=== PATIENT | male | born 1955 | race Caucasian/White ===

== ENCOUNTER 2017-01-24 19:24 | Observation (INO) | payer SELFPAY ==
[~2017-01-24] VITALS: Ht 177.8 cm; Wt 149.5 kg
[~2017-01-24 19:24] MED LIST: CEPH500C3 PO; COUM4TAB7 PO; OCUVTAB PO
[2017-01-24 19:29] VITALS: BP 180/106; PULSE 98; RESP 16; TEMP 99; O2SAT 97
[2017-01-24] MEDS ORDERED: XARE20TA PO (21:29)
[2017-01-24 21:44] VITALS: PULSE 82; RESP 16; O2SAT 97
[2017-01-24] MEDS ORDERED: SODIUM CHLORIDE 0.9% FLUSH 10 ML FLUSH IVF PRN (21:45)
--- NOTE | 2017-01-24 21:47 | PD ---
HPI Chief Complaint: Eye Problems/Injury Time Seen by Provider: 21:39 Travel History International Travel<30 days: No (5) Contact w/Intl Traveler<30days: No Traveled to known affect area: No History of Present Illness HPI Patient comes in complaining of visual changes occur approximately 3 hours ago in his left eye. Patient reports he is having blurred vision of his left eye while the grocery store. Patient states this lasted approximately 10 minutes. Patient reports associated chest tightness at that time and feeling somewhat diaphoretic. Patient denies any headache with this, dizziness, shortness of breath, any new numbness or tingling, nausea, vomiting, loss change in bowel or bladder, abdominal pain, or fevers. Patient reports he has a history of PEs and takes is Xarelto regularly last dose this morning. Patient denies anything making this better or worse other than time, which alleviated it. Patient states he also felt generalized weakness during this episode that has since resolved. PFSH Past Medical History Arthritis: Yes Asthma: Yes Autoimmune Disease: No Blood Disorders: No Anxiety: Yes Depression: Yes Heart Rhythm Problems: No Cancer: No Cardiac Catheterization: Yes Cardiovascular Problems: Yes (" LEAKY VALVE ") High Cholesterol: No Chest Pain: No Congestive Heart Failure: No COPD: No Cerebrovascular Accident: No Diabetes: No Diminished Hearing: Yes (STUFFY EARS) Deep Vein Thrombosis: Yes (hx blood clots/pe) Endocrine: No Gastrointestinal Disorders: Yes GERD: No Genitourinary: No Headaches: Yes Hepatitis: No Hiatal Hernia: No Hypertension: No Immune Disorder: No Implanted Vascular Access Dvce: No Kidney Stones: No Musculoskeletal: Yes (FREQUENT FEET CRAMPING) Neurologic: Yes ("FACIAL NEUROPATHY") Psychiatric: Yes Reproductive: No Respiratory: Yes Immunizations Current: No Migraines: No Myocardial Infarction: No Radiation Therapy: No Renal Failure: No Seizures: No Sickle Cell Disease: No Sleep Apnea: No Thyroid Disease: No Ulcer: No Past Surgical History Abdominal Surgery: Yes (HERNIA SURGERY ) AICD: No Appendectomy: No Arteriovenous Shunt: No Cardiac Surgery: No Cholecystectomy: No Ear Surgery: No Endocrine Surgery: No Eye Surgery: No Genitourinary Surgery: No Gynecologic Surgery: No Insulin Pump: No Joint Replacement: Yes (RIGHT KNEE SX X 2) Oral Surgery: Yes (ORIF RIGHT MANDIBLE) Thoracic Surgery: No Other Surgery: Yes Social History Alcohol Use: No Tobacco Use: No Substance Use: No Allergies-Medications (Allergen,Severity, Reaction): Coded Allergies: aspirin (Unverified Adverse Reaction, Severe, BLEED, 01/24/17) Sulfa (Sulfonamide Antibiotics) (Unverified Adverse Reaction, Intermediate , STS FEELS WEIRD, 01/24/17) Reported Meds & Prescriptions Reported Meds & Active Scripts Active Reported Xarelto (Rivaroxaban) 20 Mg Tab 20 Mg PO DAILY Review of Systems Except as stated in HPI: all other systems reviewed are Neg Physical Exam Narrative GENERAL: Well-developed, overly nourished, in no acute distress, and non-ill appearing. SKIN: Venous stasis dermatitis bilateral lower extremities patient reports is chronic. HEAD: Atraumatic. Normocephalic. EYES: Pupils equal and round. EOMI. No scleral icterus. No injection or drainage. ENT: No nasal bleeding or discharge. Mucous membranes pink and moist. NECK: Trachea midline. Supple. No nuclear rigidity. CARDIOVASCULAR: Regular rate and rhythm. No murmur appreciated. RESPIRATORY: No accessory muscle use. No respiratory distress. Clear to auscultation. Breath sounds equal bilaterally. MUSCULOSKELETAL: No obvious deformities. No clubbing. No cyanosis. 2+ edema bilateral lower extremities patient reports is chronic.. Full range of motion. NEUROLOGICAL: Awake and alert. No obvious cranial nerve deficits. Motor grossly within normal limits. Normal speech. PSYCHIATRIC: Appropriate mood and affect; insight and judgment normal. Data Data Last Documented VS Vital Signs Date Time Temp Pulse Resp B/P (MAP) Pulse Ox O2 Delivery O2 Flow Rate FiO2 01/24/17 21:44 82 16 97 Room Air 01/24/17 19:29 99.0 Orders Orders Electrocardiogram (01/24/17 ) Basic Metabolic Panel (Bmp) (01/24/17 21:40) Ckmb (Isoenzyme) Profile (01/24/17 21:40) Complete Blood Count With Diff (01/24/17 21:40) Magnesium (Mg) (01/24/17 21:40) Prothrombin Time / Inr (Pt) (01/24/17 21:40) Act Partial Throm Time (Ptt) (01/24/17 21:40) Troponin I (01/24/17 21:40) Chest, Single Ap (01/24/17 21:40) Ecg Monitoring (01/24/17 21:40) Bilateral Bp Monitoring (01/24/17 21:40) Iv Access Insert/Monitor (01/24/17 21:40) Oximetry (01/24/17 21:40) Oxygen Administration (01/24/17 21:40) Sodium Chloride 0.9% Flush (Ns Flush) (01/24/17 21:45) Ct Brain W/O Iv Contrast(Rout) (01/24/17 21:40) CKMB (01/24/17 21:55) CKMB% (01/24/17 21:55) Admit Order (Ed Use Only) (01/24/17 23:07) Labs Laboratory Tests Test 01/24/17 21:55 White Blood Count 6.6 TH/MM3 Red Blood Count 4.91 MIL/MM3 Hemoglobin 13.8 GM/DL Hematocrit 42.7 % Mean Corpuscular Volume 87.0 FL Mean Corpuscular Hemoglobin 28.1 PG Mean Corpuscular Hemoglobin Concent 32.3 % Red Cell Distribution Width 15.6 % Platelet Count 179 TH/MM3 Mean Platelet Volume 7.9 FL Neutrophils (%) (Auto) 76.2 % Lymphocytes (%) (Auto) 15.3 % Monocytes (%) (Auto) 7.8 % Eosinophils (%) (Auto) 0.4 % Basophils (%) (Auto) 0.3 % Neutrophils # (Auto) 5.0 TH/MM3 Lymphocytes # (Auto) 1.0 TH/MM3 Monocytes # (Auto) 0.5 TH/MM3 Eosinophils # (Auto) 0.0 TH/MM3 Basophils # (Auto) 0.0 TH/MM3 CBC Comment DIFF FINAL Differential Comment Prothrombin Time 14.0 SEC Prothromb Time International Ratio 1.3 RATIO Activated Partial Thromboplast Time 39.9 SEC Blood Urea Nitrogen 19 MG/DL Creatinine 0.86 MG/DL Random Glucose 93 MG/DL Calcium Level 9.0 MG/DL Magnesium Level 2.3 MG/DL Sodium Level 138 MEQ/L Potassium Level 3.8 MEQ/L Chloride Level 104 MEQ/L Carbon Dioxide Level 27.2 MEQ/L Anion Gap 7 MEQ/L Estimat Glomerular Filtration Rate 90 ML/MIN Total Creatine Kinase 285 U/L Creatine Kinase MB 3.3 NG/ML Troponin I LESS THAN 0.02 NG/ML MDM Medical Decision Making Medical Screen Exam Complete: Yes Emergency Medical Condition: Yes Interpretation(s) EKG reviewed by Dr. Kan shows sinus rhythm with ventricular rate of 88. No STEMI. Chest x-ray read by the radiologist shows: No evidence of acute cardiopulmonary disease. CT head read by the radiologist shows: Normal noncontrast CT head. Differential Diagnosis Acute coronary syndrome, pneumonia, TIA, CVA, electrolyte abnormality, angina, other Narrative Course Patient was seen and examined. Initial laboratory and radiological studies were ordered. IV was established. Patient was placed on cardiac monitoring. Discussed patient with Dr. Kan and plans of care and disposition. Will admit patient for chest pain evaluation and TIA workup. Discussed all findings and plan of care with patient was agreeable for admission. All questions were answered. Discussed patient with hospitalist who is agreeable to admit the patient. Patient remained stable throughout ED course Physician Communication Physician Communication [phone] Cornejo who is agreeable to admit the patient. Diagnosis Primary Impression: Chest pain Qualified Codes: R07.9 - Chest pain, unspecified Additional Impression: Visual blurriness Admitting Information Admitting Physician Requests: Observation Condition: Stable Aki Shah Jan 24, 2017 21:47
--- NOTE | 2017-01-24 22:13 | RADRPT ---
EXAM DATE/TIME: 01/24/2017 21:48 [facility] COMPARISON: No previous studies available for comparison. INDICATIONS : Short of breath. MEDICAL HISTORY : None. SURGICAL HISTORY : None. ENCOUNTER: Initial ACUITY: 1 day PAIN SCORE: 0/10 LOCATION: Bilateral chest FINDINGS: A single view of the chest demonstrates the lungs to be symmetrically aerated without evidence of mas s, infiltrate or effusion. The cardiomediastinal contours are unremarkable. Osseous structures are intact. CONCLUSION: No evidence of acute cardiopulmonary disease. Federico Ashford MD on January 24, 2017 at 22:12 Board Certified Radiologist. This report was verified electronically.
[2017-01-24 22:21] LABS: BASOPHIL % 0.3 % (0.0-2.0); EOSINOPHIL % 0.4 % (0.0-4.0); HEMATOCRIT 42.7 % (39.0-51.0); HEMO FLAGS DIFF FINAL; LYMPH % 15.3 % (9.0-44.0); MEAN CORPUSCULAR HEMOGLOBIN 28.1 PG (27.0-34.0); MEAN CORPUSCULAR HGB CONC 32.3 % (32.0-36.0); MONO % 7.8 % (0.0-8.0); NEUT % 76.2 % (16.0-70.0); PLATELET COUNT 179 TH/MM3 (150-450); RED BLOOD COUNT 4.91 MIL/MM3 (4.50-5.90); RED CELL DISTRIBUTION WIDTH 15.6 % (11.6-17.2); WHITE BLOOD COUNT 6.6 TH/MM3 (4.0-11.0)
--- NOTE | 2017-01-24 22:23 | RADRPT ---
EXAM DATE/TIME: 01/24/2017 22:07 [facility] COMPARISON: No previous studies available for comparison. INDICATIONS : Dizziness along with visual changes in the left eye. RADIATION DOSE: 56.35 CTDIvol (mGy) MEDICAL HISTORY : Cardiovascular disease. Deep venous thrombosis. Asthma SURGICAL HISTORY : Hernia repair ENCOUNTER: Initial ACUITY: 1 day PAIN SCALE: 0/10 LOCATION: cranial TECHNIQUE: Multiple contiguous axial images were obtained of the head. Using automated exposure control and adj ustment of the mA and/or kV according to patient size, radiation dose was kept as low as reasonably a chievable to obtain optimal diagnostic quality images. DICOM format image data is available electro nically for review and comparison. FINDINGS: CEREBRUM: The ventricles are normal for age. No evidence of midline shift, mass lesion, hemorrhage or acute in farction. No extra-axial fluid collections are seen. POSTERIOR FOSSA: The cerebellum and brainstem are intact. The 4th ventricle is midline. The cerebellopontine angle i s unremarkable. EXTRACRANIAL: The visualized portion of the orbits is intact. SKULL: The calvaria is intact. No evidence of skull fracture. CONCLUSION: Negative noncontrast head CT. Federico Ashford MD on January 24, 2017 at 22:21 Board Certified Radiologist. This report was verified electronically.
[2017-01-24 22:33] LABS: APTT (PATIENT) 39.9 SEC (24.3-30.1); INTERNATIONAL NORMALIZED RATIO 1.3 RATIO
[2017-01-24 22:35] LABS: ANION GAP 7 MEQ/L (5-15); BICARBONATE 27.2 MEQ/L (21.0-32.0); BLOOD UREA NITROGEN 19 MG/DL (7-18); CHLORIDE 104 MEQ/L (98-107); GLOMERULAR FILTRATION RATE 90 ML/MIN (>89); MAGNESIUM 2.3 MG/DL (1.5-2.5); POTASSIUM 3.8 MEQ/L (3.5-5.1); SODIUM (NA) 138 MEQ/L (136-145)
[2017-01-24 22:39] LABS: CREATINE KINASE 285 U/L (39-308)
[2017-01-24 23:04] LABS: CKMB 3.3 NG/ML (0.5-3.6)
[2017-01-24] MEDS ORDERED: DEXTROSE 50% IN WATER 50 ML VIAL(D50) IV PUSH PRN (23:30)
[2017-01-24] MEDS ORDERED: SODIUM CHLORIDE 0.9% FLUSH 5 ML FLUSH IV FLUSH PRN (23:30)
[2017-01-24] MEDS ORDERED: GLUCAGON 1 MG/ML VIAL OTHER PRN (23:30)
[2017-01-25] VITALS (7 sets, daily range): BP systolic 122–153; BP diastolic 73–83; PULSE 60–76; RESP 16–20; TEMP 97.5–98.1; O2SAT 95–99
--- NOTE | 2017-01-25 02:28 | HHI.HP ---
HPI Service [facility] Primary Care Physician Unknown Admission Diagnosis chest pain, possible TIA Diagnoses: Chief Complaint: vision changes, chest tightness Travel History International Travel<30 Days: No (5) Contact w/Intl Traveler <30 Da: No Traveled to Known Affected Are: No History of Present Illness Written by MORIAH Diego acting as scribe for [Clemente] on 01/25/17 at 02: 13. 61 y/o male with a history of Lymphedema, anxiety, PE 2008, leaky valve and arthritis, presented to the ED with complaints of vision changes. He states he was at the grocery store today and his left eye began burry and he could not see. He states it lasted 10 mins and when we went home he still didn't feel right and he became nervous. With the anxiety he began to have chest tightness that occurs when he is nervous. He felt he might be having a stroke so he came to the hospital. While in his room he was looking at his phone and had blurriness as well. 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 Review of Systems Except as stated in HPI: all other systems reviewed are Neg Past Family Social History Past Medical History Lymphedema Anxiety PE 2008 Arthritis Leaky valve Past Surgical History Hernia repair x2 Knee surgeries x3 Back surgery Left shoulder surgery Reported Medications Reported Meds & Active Scripts Active Reported Xarelto (Rivaroxaban) 20 Mg Tab 20 Mg PO DAILY Allergies: Coded Allergies: aspirin (Unverified Adverse Reaction, Severe, BLEED, 01/24/17) Sulfa (Sulfonamide Antibiotics) (Unverified Adverse Reaction, Intermediate , STS FEELS WEIRD, 01/24/17) Active Ordered Medications Current Medications Medications (Trade) Dose Ordered Sig/Felicitas Route Start Time Stop Time Status Last Admin (NS Flush) 2 ml BID IV FLUSH 01/25/17 09:00 (NS Flush) 2 ml UNSCH PRN IV FLUSH 01/24/17 23:30 (D50w (Vial) Inj) 50 ml UNSCH PRN IV PUSH 01/24/17 23:30 (Glucagon Inj) 1 mg UNSCH PRN OTHER 01/24/17 23:30 Family History Dad: Dm, PE Brother: DM Grandfather: Heart disease Social History Tobacco use: Denies Alcohol use: Denies Illicit drug use: Denies Physical Exam Vital Signs Vital Signs Date Time Temp Pulse Resp B/P (MAP) Pulse Ox O2 Delivery O2 Flow Rate FiO2 01/25/17 00:50 97.9 72 20 122/77 (92) 97 01/25/17 00:06 76 16 153/80 (104) 99 Room Air 01/24/17 21:44 82 16 97 Room Air 01/24/17 21:44 97 Room Air 01/24/17 21:30 82 16 01/24/17 19:29 99.0 98 16 180/106 (130) 97 Room Air Physical Exam GENERAL: This is a well-nourished, obese patient SKIN: Bilateral lymphedema with open crusty lesions HEAD: Atraumatic. Normocephalic. EYES: Pupils equal round and reactive. Left eye moves inward intermittently ENT: Nose without bleeding, purulent drainage or septal hematoma. Airway patent. NECK: Trachea midline. No JVD. CARDIOVASCULAR: Regular rate and rhythm without murmurs, gallops, or rubs. RESPIRATORY: Clear to auscultation. Breath sounds equal bilaterally. No wheezes , rales, or rhonchi. GASTROINTESTINAL: Abdomen soft, non-tender, nondistended MUSCULOSKELETAL:Bilateral lower extremity +2 pitting edema, No calf tenderness. NEUROLOGICAL: Awake and alert. Motor and sensory grossly within normal limits. Normal speech. Laboratory Laboratory Tests Test 01/24/17 21:55 White Blood Count 6.6 Red Blood Count 4.91 Hemoglobin 13.8 Hematocrit 42.7 Mean Corpuscular Volume 87.0 Mean Corpuscular Hemoglobin 28.1 Mean Corpuscular Hemoglobin Concent 32.3 Red Cell Distribution Width 15.6 Platelet Count 179 Mean Platelet Volume 7.9 Neutrophils (%) (Auto) 76.2 Lymphocytes (%) (Auto) 15.3 Monocytes (%) (Auto) 7.8 Eosinophils (%) (Auto) 0.4 Basophils (%) (Auto) 0.3 Neutrophils # (Auto) 5.0 Lymphocytes # (Auto) 1.0 Monocytes # (Auto) 0.5 Eosinophils # (Auto) 0.0 Basophils # (Auto) 0.0 CBC Comment DIFF FINAL Differential Comment Prothrombin Time 14.0 Prothromb Time International Ratio 1.3 Activated Partial Thromboplast Time 39.9 Blood Urea Nitrogen 19 Creatinine 0.86 Random Glucose 93 Calcium Level 9.0 Magnesium Level 2.3 Sodium Level 138 Potassium Level 3.8 Chloride Level 104 Carbon Dioxide Level 27.2 Anion Gap 7 Estimat Glomerular Filtration Rate 90 Total Creatine Kinase 285 Creatine Kinase MB 3.3 Troponin I LESS THAN 0.02 Result Diagram: 01/24/17215401/24/172154 Imaging Last Impressions Head CT 01/24/172139 Signed Impressions: Service Date/Time: Tuesday, January 24, 2017 22:07 - CONCLUSION: Negative noncontrast head CT. Federico Ashford MD Chest X-Ray 01/24/172139 Signed Impressions: Service Date/Time: Tuesday, January 24, 2017 21:48 - CONCLUSION: No evidence of acute cardiopulmonary disease. Federico Ashford MD [place] VTE Risk Assessment Caprini VTE Risk Assessment: Mod/High Risk (score >= 2) Caprini Risk Assessment Model Point Value = 1 Point Value = 2 Point Value = 3 Point Value = 5 Age 41-60 Minor surgery BMI > 25 kg/m2 Swollen legs Varicose veins or History of unexplained or recurrent spontaneous Oral contraceptives or hormone replacement Sepsis (< 1 month) Serious lung disease, including pneumonia (< 1 month) Abnormal pulmonary function Acute myocardial infarction Congestive heart failure (< 1 month) History of inflammatory bowel disease Medical patient at bed rest Age 61-74 Arthroscopic surgery Major open surgery (> 45 min) Laparoscopic surgery (> 45 min) Malignancy Confined to bed (> 72 hours) Immobilizing plaster cast Central venous access Age >= 75 History of VTE Family history of VTE Factor V Leiden Prothrombin [id number] Lupus anticoagulant Anticardiolipin antibodies Elevated serum homocysteine Heparin-induced thrombocytopenia Other congenital or acquired thrombophilia Stroke (< 1 month) Elective arthroplasty Hip, pelvis, or leg fracture Acute spinal cord injury (< 1 month) Prophylaxis Regimen Total Risk Factor Score Risk Level Prophylaxis Regimen 0-1 Low Early ambulation 2 Moderate Order ONE of the following: *Sequential Compression Device (SCD) *Heparin 5000 units SQ BID 3-4 Higher Order ONE of the following medications: *Heparin 5000 units SQ TID *Enoxaparin/Lovenox 40 mg SQ daily (WT < 150 kg, CrCl > 30 mL/min) *Enoxaparin/Lovenox 30 mg SQ daily (WT < 150 kg, CrCl > 10-29 mL/min) *Enoxaparin/Lovenox 30 mg SQ BID (WT < 150 kg, CrCl > 30 mL/min) AND/OR *Sequential Compression Device (SCD) 5 or more Highest Order ONE of the following medications: *Heparin 5000 units SQ TID (Preferred with Epidurals) *Enoxaparin/Lovenox 40 mg SQ daily (WT < 150 kg, CrCl > 30 mL/min) *Enoxaparin/Lovenox 30 mg SQ daily (WT < 150 kg, CrCl > 10-29 mL/min) *Enoxaparin/Lovenox 30 mg SQ BID (WT < 150 kg, CrCl > 30 mL/min) AND *Sequential Compression Device (SCD) Assessment and Plan Problem List: (1) Visual blurriness ICD Code: H53.8 - Other visual disturbances Status: Acute (2) Chest pain ICD Code: R07.9 - Chest pain, unspecified Status: Acute (3) TIA (transient ischemic attack) ICD Code: G45.9 - Transient cerebral ischemic attack, unspecified Assessment and Plan 61 y/o male with a history of Lymphedema, anxiety, PE 2008, and arthritis, presented to the ED with complaints of vision changes. TIA, patient with vision changes Head CT reviewed and is unremarkable -Consult neurology -MRI and MRA ordered -Carotid US and 2D echo ordered -Lipid panel and A1C ordered -PT/OT ordered Chest pain, atypical, r/o ACS Troponin .02 EKG reviewed and shows SR -Serial troponin and EKGs -Monitor tele Lymphedema, chronic -Encouraged elevation of legs at home -May need outpatient treatment in the future DVT prophylaxis: SCDs This note was transcribed by scribe [Christine Mack]. I, Dr. Amanda Cornejo personally performed the history, physical exam, and medical decision making; and confirmed the accuracy of the information in the transcribed note. Authenticated by Dr. Amanda Cornejo on 01/25/17 at 02:13. Discussed Condition With Patient and RN Problem Qualifiers (1) Chest pain: Qualified Codes: R07.9 - Chest pain, unspecified Christine Mack Jan 25, 2017 02:28 Amanda Cornejo MD Jan 27, 2017 10:09
[2017-01-25 03:39] LABS: CREATINE KINASE 240 U/L (39-308); HDL CHOLESTEROL 41.4 MG/DL (40.0-60.0); LDL CHOLESTEROL 107 MG/DL (0-99)
[2017-01-25] MEDS ORDERED: SODIUM CHLORIDE 0.9% FLUSH 5 ML FLUSH IV FLUSH SCH (09:00)
[2017-01-25] MEDS ORDERED: RIVAROXABAN 20 MG TAB PO SCH (09:00)
--- NOTE | 2017-01-25 09:28 | RADRPT ---
EXAM DATE/TIME: 01/25/2017 08:30 [facility] COMPARISON: No previous studies available for comparison. INDICATIONS : CVA. Left eye vision changes. Weakness. MEDICAL HISTORY : None. SURGICAL HISTORY : Umbilical hernia repair. Left shoulder surgery. Lumbar surgery. Left knee surgery. ENCOUNTER: Subsequent ACUITY: 2 day PAIN SCORE: 0/10 LOCATION: head. TECHNIQUE: Multiplanar, multisequence MRI of the brain was performed without contrast. FINDINGS: CEREBRUM: There are minimal periventricular white matter changes without parenchymal hemorrhage or acute infarc tion. There is no restricted diffusion. Midline structures are intact. . POSTERIOR FOSSA: The cerebellum and brainstem are intact. The 4th ventricle is midline. The cerebellopontine angle is unremarkable. The cerebellar tonsils are normal in position. EXTRACRANIAL: The visualized portions of the orbits and paranasal sinuses are unremarkable. CONCLUSION: Minimal periventricular white matter changes. There is no restricted diffusion to rios ggest an acute ischemic event. Hector Segura MD FACR on January 25, 2017 at 9:25 Board Certified Radiologist. This report was verified electronically.
--- NOTE | 2017-01-25 09:29 | RADRPT ---
EXAM DATE/TIME: 01/25/2017 08:30 [facility] COMPARISON: No previous studies available for comparison. INDICATIONS : CVA. Vision changes in left eye. Weakness. MEDICAL HISTORY : None. SURGICAL HISTORY : Umbilical hernia repair. Left shoulder surgery. Lumbar surgery. Left kne e surgery. ENCOUNTER: Subsequent ACUITY: 2 day PAIN SCORE: 0/10 LOCATION: head Please note a normal MRA of the brain does not entirely exclude the possibility of a small aneurysm, nor the possibility of distal intracranial vessel disease. TECHNIQUE: 3D time of flight MRA was performed. Source images, multiplanar STS MIP, and 3D volum e MIP reconstructions were reviewed. FINDINGS: There is excellent visualization of the major intracranial arteries out to the second-order branch ve ssels. There is no evidence for aneurysm, vessel truncation or stenosis, and no evidence for vascula r malformation. There is poor visualization A1 in segment on the right probably congenital. CONCLUSION: Negative for major branch vessel occlusion. Hector Segura MD FACR on January 25, 2017 at 9:27 Board Certified Radiologist. This report was verified electronically.
--- NOTE | 2017-01-25 11:31 | HHI.PR ---
Subjective Remarks Follow up for possible TIA with visual changes. The patient reports he did improve last night, however started to have some mild blurred vision again this morning. He also complains of dry mouth. Denies any headache, unilateral numbness/tingling/weakness. He has been ambulating the hallway without difficulty. The patient does report he was diagnosed with cataracts over a year ago but cannot afford the surgery. 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 He states "I'm sure your report is going to say that I can't sit for more than 8hours so then I'm not able to work". He states he applied for disability when he had his pulmonary embolisms back in 2008 however was denied. I constantly referred him to discuss this with his PCP. The patient states when he was diagnosed with the PEs, he was initially on Coumadin, now transitioned to Xarelto 2-3 years ago. He states he receives free Xarelto from his PCP and alternates between the 15mg and 20mg but does take it every day. He does not take any other medications other than over the counter vitamins. Objective Vitals Vital Signs Date Time Temp Pulse Resp B/P (MAP) Pulse Ox O2 Delivery O2 Flow Rate FiO2 01/25/17 07:44 97.8 61 17 143/77 (99) 96 01/25/17 03:24 98.1 64 18 130/73 (92) 96 01/25/17 01:37 67 01/25/17 00:50 97.9 72 20 122/77 (92) 97 01/25/17 00:06 76 16 153/80 (104) 99 Room Air 01/24/17 21:44 82 16 97 Room Air 01/24/17 21:44 97 Room Air 01/24/17 21:30 82 16 01/24/17 19:29 99.0 98 16 180/106 (130) 97 Room Air Result Diagram: 01/24/17215401/24/172154 Imaging Last Impressions Head Magnetic Resonance Angiography 01/25/17 0000 Signed Impressions: Service Date/Time: Wednesday, January 25, 2017 08:30 - CONCLUSION: Negative for major branch vessel occlusion. Hector Segura MD FACR Brain MRI 01/25/17 Signed Impressions: Service Date/Time: Wednesday, January 25, 2017 08:30 - CONCLUSION: Minimal periventricular white matter changes. There is no restricted diffusion to suggest an acute ischemic event. Hector Segura MD FACR Head CT 01/24/172139 Signed Impressions: Service Date/Time: Tuesday, January 24, 2017 22:07 - CONCLUSION: Negative noncontrast head CT. Federico Ashford MD Chest X-Ray 01/24/172139 Signed Impressions: Service Date/Time: Tuesday, January 24, 2017 21:48 - CONCLUSION: No evidence of acute cardiopulmonary disease. Federico Ashford MD Objective Remarks GENERAL: Well-nourished, well-developed obese male patient in [facility]. SKIN: Warm and dry. No rash. HEENT: Normocephalic. Atraumatic. Pupils equal and round. Mucous membranes pink and moist. NECK: Supple. Trachea midline. CARDIOVASCULAR: Regular rate and rhythm. S1, S2 noted. No murmur appreciated. RESPIRATORY: No accessory muscle use. Clear to auscultation. Breath sounds equal bilaterally. GASTROINTESTINAL: Abdomen soft, non-tender, nondistended. Normoactive bowel sounds x4. MUSCULOSKELETAL: No obvious deformities. Chronic venous stasis changes with 2+ bilateral lower extremity edema. NEUROLOGICAL: Awake and alert. No obvious cranial nerve deficits. Motor grossly within normal limits. 5/5 muscle strength in bilateral upper and lower extremities. Normal speech. PSYCHIATRIC: Appropriate mood and affect; insight and judgment normal. Medications and IVs Last Impressions Head Magnetic Resonance Angiography 01/25/17 0000 Signed Impressions: Service Date/Time: Wednesday, January 25, 2017 08:30 - CONCLUSION: Negative for major branch vessel occlusion. Hector Segura MD FACR Brain MRI 01/25/17 0000 Signed Impressions: Service Date/Time: Wednesday, January 25, 2017 08:30 - CONCLUSION: Minimal periventricular white matter changes. There is no restricted diffusion to suggest an acute ischemic event. Hector Segura MD FACR Head CT 01/24/172139 Signed Impressions: Service Date/Time: Tuesday, January 24, 2017 22:07 - CONCLUSION: Negative noncontrast head CT. Federico Ashford MD Chest X-Ray 01/24/17 7010 Signed Impressions: Service Date/Time: Tuesday, January 24, 2017 21:48 - CONCLUSION: No evidence of acute cardiopulmonary disease. Federico Ashford MD A/P Problem List: (1) Visual blurriness ICD Code: H53.8 - Other visual disturbances Status: Acute (2) Chest pain ICD Code: R07.9 - Chest pain, unspecified Status: Acute (3) TIA (transient ischemic attack) ICD Code: G45.9 - Transient cerebral ischemic attack, unspecified Assessment and Plan 61 y/o male with a history of Lymphedema, anxiety, PE 2008, and arthritis, presented to the ED with complaints of vision changes. Vision Changes: rule out TIA vs CVA. Patient also has hx of cataracts possibly contributing. Head CT images reviewed, unremarkable. -Brain MRI/MRA images reviewed, shows minimal periventricular white matter changes; no restricted diffusion to suggest acute ischemic event -Carotid US pending -2d Echo pending -Lipid panel with elevated LDL 107, start on pravastatin -PT/OT/ST evals ordered -Consulted neurology, discussed with Dr. Ivy Atypical Chest pain: suspect secondary to anxiety, patient states he became nervous when his vision blurred and had some chest tightness. No hx of CAD. Rule out ACS. -Troponins negative x2, awaiting 3rd set -EKG reviewed, no acute ischemic changes -Monitor on telemetry Lymphedema, chronic -Encouraged elevation of legs and [place] hose however patient states he cannot tolerate teds -Instructed to keep legs clean and dry DVT prophylaxis: SCDs Discharge Planning Awaiting results of echo, carotid U/S, and evaluation by neurology. 1440hrs: Echocardiogram resulted and unremarkable. Carotid U/S with plaque but no stenosis. Started on pravastatin for elevated LDL. Discussed with Dr. Ivy, ok to discharge with unremarkable work up, continue on Xarelto. Recommends f/up with ophthalmology. Discharge patient to home Condition on discharge: Improved Heart Healthy Diet as tolerated Ad Lulu activity Rx written: pravastatin Follow-up with primary care physician, neurology, and ophthalmology. Problem Qualifiers (1) Chest pain: Qualified Codes: R07.9 - Chest pain, unspecified Татьяна Emerson PA-C Jan 25, 2017 11:31
[2017-01-25 11:44] LABS: CREATINE KINASE 235 U/L (39-308)
--- NOTE | 2017-01-25 11:44 | RADRPT ---
EXAM DATE/TIME: 01/25/2017 09:49 [facility] COMPARISON: No previous studies available for comparison. INDICATIONS : Cerebrovascular accident, visual changes. MEDICAL HISTORY : Facial neuropathy. Syncope. DVT. Asthma. Dyspnea. GERD. Lymphedmea. SURGICAL HISTORY : ORIF right mandible. Cardiac cath. Hernia surgery. Lumbar discectomy. Total right replacement. Depres charles. ENCOUNTER: Initial ACUITY: 1 day PAIN SCORE: 0/10 LOCATION: Bilateral neck PEAK SYSTOLIC VELOCITIES (cm/sec): ICA/CCA RATIO: Right: 0.8 Left: 1.3 ICA: Right: 76 Left: 102 CCA: Right: 93 Left: 79 ECA: Right: 72 Left: 70 VERTEBRAL: Right: 54 antegrade Left: 47 antegrade Elevated flow velocities and ICA/CCA ratios have been found to correlate with increased degrees of vessel stenosis, calculated as percentage of diameter relative to a normal segment of distal ICA/CCA FINDINGS: RIGHT CAROTID: No significant stenosis is visualized. The waveforms are within normal limits. LEFT CAROTID: Minimal calcified plaque in the distal common carotid artery and carotid bulb. No significant stenosi s is visualized. The waveforms are within normal limits. VERTEBRAL ARTERIES: Antegrade flow is seen in both vertebral arteries. MISCELLANEOUS: None. CONCLUSION: 1. Minimal calcified plaque in the distal left common carotid artery and carotid bulb. 2. No significant carotid flow-limiting stenosis. 3. Antegrade vertebral artery flow bilaterally. Cabrera Lindo MD on January 25, 2017 at 11:40 Board Certified Radiologist. This report was verified electronically.
--- NOTE | 2017-01-25 12:12 | MB ---
cc: YUNIOR SERRA M.D. DATE OF CONSULTATION 01/25/2017 DATE OF 1955 REASON FOR CONSULTATION Possible TIA. HISTORY OF PRESENT ILLNESS This is a pleasant 61-year-old man with a history of PE, lymphedema, anxiety, possible venostasis of the legs comes in because he was at [employer] yesterday when all of a sudden he started to have loss of visual lee on the left side. He felt like everything was concave. He did not feel well in his head. He had to actually sit down. No loss of consciousness or awareness. He became anxious. He has chronic blurry vision. He follows with Dr. Rollins. He states he has cataracts and at some point in time will need surgery. He also complains of dry eyes. 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 He is worried about her being left alone. He denies any headache, chest pain, shortness of breath, any weakness. Actually he has been ambulating around the ED. PAST MEDICAL HISTORY He has a past medical history as stated. PAST SURGICAL HISTORY 1. Hernia 2. Knee surgery 3. Back surgery 4. Left shoulder surgery MEDICATIONS Home meds are Xarelto, he takes between 15-20 mg daily, obtains samples from his primary care. ALLERGIES POSSIBLE ASPIRIN WITH BLEEDING, SULFA. FAMILY HISTORY Father had diabetes and PE. Brother, diabetes. Grandfather, heart disease. His mother has dementia. SOCIAL HISTORY He does not smoke, drink or use drugs. PHYSICAL EXAM VITAL SIGNS: His temperature is 97.5, pulse 63, respiratory rate 19, blood pressure 144/83. NECK: His neck is supple. No appreciable bruits. HEART: Regular. NEUROLOGIC: He is awake, alert, oriented and fluent. His pupils are reactive. He can count fingers. Visual lee are full to confrontation. Face symmetrical. Tongue midline. Motor delacruz, I do not appreciate any weakness. He does not exhibit a drift. 5/5 upper and lower extremity strength. There is no leg lag. Both toes are downgoing. [id number] no past-pointing. He does have chronic stasis changes in his legs and edema. Gait, he has been ambulating around the hallway and he is not unsteady. LABS Reviewed. His PTT is 39.9, PT 14. Chemistries, cardiac enzymes were negative. His triglycerides 86, cholesterol 166, LDL 107, HDL 41.4. MRI of the brain did not yield anything acute. Some minimal white matter changes. No restricted diffusion abnormalities. MRA [place] no branch occlusion noted. Carotid ultrasound echo reports are pending. IMPRESSION Possible TIA like symptoms in a 61-year-old male with a history of obesity, PE, DVT. RECOMMENDATIONS Recommend continuing 20 mg Xarelto, get a carotid ultrasound and 2-D echo. Consider possible low-dose statin. His LDL is 107. Blood pressure control if indicated. Weight loss encouraged. Discharge planning likely today if workup is negative. MD CARLOS EDUARDO Lozoya/WILBUR /11:40 AM /12:03 PM
--- NOTE | 2017-01-25 12:17 | ECHRPT ---
Indication: cva/tia CONCLUSIONS Normal left ventricular size. Wall thickness is normal. The left ventricular systolic function is normal with an estimated ejection fraction in the range of 55-60%. [id number] mitral valve regurgitation. Trace aortic valve regurgitation. BP: 130 / 73 HR: 64 Rhythm: MEASUREMENTS (Male / Female) Normal Values Technical Quality:Technically difficult study 2D ECHO LV Diastolic Diameter PLAX 4.7 cm 4.2 - 5.9 / 3.9 - 5.3 cm LV Systolic Diameter PLAX 3.7 cm IVS Diastolic Thickness 1.2 cm 0.6 - 1.0 / 0.6 - 0.9 cm LVPW Diastolic Thickness 0.9 cm 0.6 - 1.0 / 0.6 - 0.9 cm LV Relative Wall Thickness 0.4 DOPPLER Mitral E Point Velocity 79.0 cm/s Mitral A Point Velocity 81.9 cm/s Mitral E to A Ratio 1.0 LV E' Lateral Velocity 10.3 cm/s Mitral E to LV E' Lateral Ratio 7.7 LV E' Septal Velocity 9.2 cm/s Mitral E to LV E' Septal Ratio 8.6 TR Peak Velocity 194.0 cm/s TR Peak Gradient 15.1 mmHg Right Atrial Pressure 10.0 mmHg Pulmonary Artery Systolic Pressu 25.1 mmHg Right Ventricular Systolic Press 25.1 mmHg FINDINGS LEFT VENTRICLE Normal left ventricular size. Wall thickness is normal. The left ventricular systolic function is normal with an estimated ejection fraction in the range of 55-60%. RIGHT VENTRICLE Normal right ventricular size and systolic function. LEFT ATRIUM The left atrial size is normal. RIGHT ATRIUM The right atrial size is normal. ATRIAL SEPTUM Normal atrial septal thickness without atrial level shunting by limited color doppler interrogation. AORTA The aortic root and proximal ascending aorta are normal in size on limited imaging. MITRAL VALVE [id number]-rs-[id number] mitral valve regurgitation. AORTIC VALVE Trace aortic valve regurgitation. TRICUSPID VALVE Structurally normal tricuspid valve. No tricuspid valve stenosis or regurgitation. PULMONARY VALVE No pulmonary valve regurgitation or stenosis. VESSELS The inferior vena cava is normal in size. PERICARDIUM No pericardial effusion. Gordon Cortes MD, FACC (Electronically Signed) Final Date:25 January 2017 12:16
[2017-01-25 12:39] LABS: HEMOGLOBIN A1a 1.3 %; HEMOGLOBIN A1b 1.8 %; HEMOGLOBIN Ao 84.8 %; HEMOGLOBIN LA1C 2.1 %; HEMOGLOBIN P3 3.7 %
[2017-01-25] MEDS ORDERED: PRAV20TA2 PO (14:21)
--- NOTE | 2017-01-25 14:21 | HHI.DCPOC ---
Discharge Care Plan Diagnosis: (1) Visual blurriness (2) TIA (transient ischemic attack) Goals to Promote Your Health * To prevent worsening of your condition and complications * To maintain your health at the optimal level Directions to Meet Your Goals Take your medications as prescribed Follow your dietary instruction Follow activity as directed Keep your appointments as scheduled Take your immunizations and boosters as scheduled If your symptoms worsen call your PCP, if no PCP go to Urgent Care Center or Emergency Room Smoking is Dangerous to Your Health. Avoid second hand smoke Call the 24-hour hour crisis hotline for domestic abuse at Татьяна Emerson PA-C Jan 25, 2017 14:21
--- NOTE | 2017-01-25 14:31 | EKG ---
Date Performed: 01/25/2017 Time Performed: 10:37:39 PTAGE: 61 years EKG: Sinus rhythm WITH FIRST DEGREE AV BLOCK MINIMAL ST DEPRESSION ABNORMAL ECG PREVIOUS TRACING : 01/25/2017 04.41 Compared to prior tracing no significant change DOCTOR: Jeanine Linder Interpretating Date/Time 01/25/2017 14:29:58
--- NOTE | 2017-01-25 14:45 | EKG ---
Date Performed: 01/25/2017 Time Performed: 04:41:58 PTAGE: 61 years EKG: Sinus rhythm WITH FIRST DEGREE AV BLOCK ABNORMAL ECG PREVIOUS TRACING : 01/24/2017 19.46 Compared to prior tracing no significant change DOCTOR: Jeanine Linder Interpretating Date/Time 01/25/2017 14:44:33
--- NOTE | 2017-01-25 15:05 | EKG ---
Date Performed: 01/24/2017 Time Performed: 19:46:19 PTAGE: 61 years EKG: Sinus rhythm WITH FIRST DEGREE AV BLOCK ABNORMAL ECG PREVIOUS TRACING : 01/08/2009 23.43 Compared to the previous tracing rate faster DOCTOR: Jeanine Linder Interpretating Date/Time 01/25/2017 15:04:17
== END 2017-01-25 18:03 | disposition home or self-care (01) ==
LOC: NEPE 19:24 → NEDA 23:09 → NEPGCP 01-25 00:13
PROVIDERS: ADMIT Hospitalist; ATTEND Hospitalist
DX: G45.9 Transient cerebral ischemic attack, unspecified (principal); F41.9 Anxiety disorder, unspecified; H26.9 Unspecified cataract; J45.909 Unspecified asthma, uncomplicated; R94.31 Abnormal electrocardiogram [ECG] [EKG]; Z86.711 Personal history of pulmonary embolism
CPT/HCPCS: 70450; 70544; 70551; 71010; 80048; 80061; 82550; 82552; 83036; 83735; 84484; 85025; 85610; 85730; 93005; 93306; 93880; 97166; 99285; G0378; G8987; G8988; G8989

== ENCOUNTER 2017-05-12 21:10 | Emergency (ER) | payer SELFPAY ==
[~2017-05-12] VITALS: Ht 177.8 cm; Wt 154.6 kg
[~2017-05-12 21:10] MED LIST changes: -CEPH500C3 PO; -COUM4TAB7 PO; -OCUVTAB PO; +PRAV20TA2 PO; +XARE20TA PO
[2017-05-12 21:12] VITALS: BP 220/103; PULSE 99; RESP 20; TEMP 98.2; O2SAT 95
[2017-05-13] MEDS ORDERED: SODIUM CHLORIDE 0.9% FLUSH 10 ML FLUSH IVF PRN (01:00)
[2017-05-13 01:22] LABS: AUTOMATED NEUTROPHIL # 4.1 TH/MM3 (1.8-7.7); BASOPHIL % 0.7 % (0.0-2.0); EOSINOPHIL % 0.8 % (0.0-4.0); HEMATOCRIT 41.6 % (39.0-51.0); HEMOGLOBIN 13.7 GM/DL (13.0-17.0); LYMPH % 20.7 % (9.0-44.0); LYMPHOCYTE # 1.2 TH/MM3 (1.0-4.8); MEAN CORPUSCULAR HEMOGLOBIN 28.6 PG (27.0-34.0); MEAN CORPUSCULAR HGB CONC 32.9 % (32.0-36.0); MEAN PLATELET VOLUME 7.4 FL (7.0-11.0); MONO % 7.6 % (0.0-8.0); MONOCYTE # 0.4 TH/MM3 (0-0.9); NEUT % 70.2 % (16.0-70.0); PLATELET COUNT 173 TH/MM3 (150-450); RED BLOOD COUNT 4.78 MIL/MM3 (4.50-5.90); RED CELL DISTRIBUTION WIDTH 15.1 % (11.6-17.2); WHITE BLOOD COUNT 5.9 TH/MM3 (4.0-11.0)
[2017-05-13 01:51] LABS: ALBUMIN 3.5 GM/DL (3.4-5.0); ALT (GPT) 54 U/L (12-78); AST (GOT) 33 U/L (15-37); BICARBONATE 28.7 MEQ/L (21.0-32.0); BLOOD UREA NITROGEN 15 MG/DL (7-18); CALCIUM 8.2 MG/DL (8.5-10.1); CHLORIDE 105 MEQ/L (98-107); CREATININE 0.85 MG/DL (0.60-1.30); GLOMERULAR FILTRATION RATE 91 ML/MIN (>89); GLUCOSE,RANDOM 107 MG/DL (74-106); MAGNESIUM 2.1 MG/DL (1.5-2.5); SODIUM (NA) 141 MEQ/L (136-145)
[2017-05-13 01:55] LABS: ALKALINE PHOSPHATASE 70 U/L (45-117); TOTAL BILIRUBIN ADULT 0.4 MG/DL (0.2-1.0); TOTAL PROTEIN 7.1 GM/DL (6.4-8.2); TROPONIN I LESS THAN 0.02 NG/ML (0.02-0.05)
--- NOTE | 2017-05-13 02:38 | RADRPT ---
EXAM DATE/TIME: 05/13/2017 02:03 [facility] COMPARISON: No previous studies available for comparison. INDICATIONS : Right leg swelling. MEDICAL HISTORY : Deep venous thrombosis. Chronic obstructive pulmonary disease. Anticoagulant therapy. Pulmonary e mbolism. Syncope. Arthritis. Depression. Anxiety. SURGICAL HISTORY : Lumbar discectomy. Right knee surgery. Cardiac catheterization. ENCOUNTER: Subsequent ACUITY: >1 year PAIN SCORE: 4/10 LOCATION: Right leg. TECHNIQUE: Venous ultrasound of the leg was performed from the inguinal ligament to the proximal calf. Real-johanna e, color Doppler and spectral tracing, compression and augmentation techniques were used. FINDINGS: There is normal compressibility of the deep venous system from the inguinal region to the proximal ca lf. No echogenic clot is seen in the lumen of the common femoral, femoral, popliteal, and posterior tibial veins. There is a normal response of the venous system to proximal and distal augmentation an d respiration. There is edema in subcutaneous soft tissues of the lower leg. CONCLUSION: No evidence of DVT. Karan Buck MD on May 13, 2017 at 2:36 Board Certified Radiologist. This report was verified electronically.
[2017-05-13 03:07] VITALS: O2SAT 98
--- NOTE | 2017-05-13 03:21 | PD ---
HPI . Edema Chief Complaint: Edema Time Seen by Provider: 00:46 Travel History International Travel<30 days: No Contact w/Intl Traveler<30days: No Traveled to known affect area: No History of Present Illness HPI 61-year-old male complains of having right leg swelling concerned he may have a DVT. Patient has a history of pulmonary emboli before the past, patient takes her Ultram. Patient is also under number some social stressors, taking care of his mother who has Alzheimer's, has had significant amounts of difficulty lately doing same. Patient has no depressive thoughts suicidal thoughts, and no harmful thoughts towards his mother. She also denies any chest pain shortness of breath, fever chills or sweats. No change in exercise tolerance lately. PFSH Past Medical History Narrative Medical Past medical history reviewed Hx Anticoagulant Therapy: Yes Arthritis: Yes Asthma: Yes Autoimmune Disease: No Blood Disorders: No Anxiety: Yes Depression: Yes Cancer: No Cardiac Catheterization: Yes Cardiovascular Problems: Yes (" LEAKY VALVE " AND HX OF CARDIAC CATH.) High Cholesterol: No Chest Pain: No Congestive Heart Failure: No Cerebrovascular Accident: No Diabetes: No Diminished Hearing: Yes (STUFFY EARS) Deep Vein Thrombosis: Yes (hx blood clots/pe) Endocrine: No Gastrointestinal Disorders: Yes GERD: No Genitourinary: No Headaches: Yes Hepatitis: No Hiatal Hernia: No Hypertension: No Immune Disorder: No Implanted Vascular Access Dvce: No Kidney Stones: No Musculoskeletal: Yes (FREQUENT FEET CRAMPING) Neurologic: Yes ("FACIAL NEUROPATHY") Psychiatric: Yes Reproductive: No Respiratory: Yes Immunizations Current: No Migraines: No Myocardial Infarction: No Radiation Therapy: No Renal Failure: No Seizures: No Sickle Cell Disease: No Sleep Apnea: No Thyroid Disease: No Ulcer: No Past Surgical History Abdominal Surgery: Yes (HERNIA SURGERY ) AICD: No Appendectomy: No Arteriovenous Shunt: No Cardiac Surgery: No Cholecystectomy: No Ear Surgery: No Endocrine Surgery: No Eye Surgery: No Genitourinary Surgery: No Gynecologic Surgery: No Insulin Pump: No Joint Replacement: Yes (RIGHT KNEE SX X 2) Oral Surgery: Yes (ORIF RIGHT MANDIBLE) Thoracic Surgery: No Other Surgery: Yes Social History Alcohol Use: No Tobacco Use: No Substance Use: No Allergies-Medications (Allergen,Severity, Reaction): Coded Allergies: aspirin (Unverified Adverse Reaction, Severe, BLEED, 01/24/17) Sulfa (Sulfonamide Antibiotics) (Unverified Adverse Reaction, Intermediate , STS FEELS WEIRD, 01/24/17) Reported Meds & Prescriptions Reported Meds & Active Scripts Active Pravastatin 20 Mg Tab 20 Mg PO HS Reported Xarelto (Rivaroxaban) 20 Mg Tab 20 Mg PO DAILY Narrative Medication Allergies and medications reviewed Review of Systems Except as stated in HPI: all other systems reviewed are Neg General / Constitutional: No: Fever Eyes: No: Visual changes HENT: No: Headaches Cardiovascular: No: Chest Pain or Discomfort Respiratory: No: Shortness of Breath Gastrointestinal: No: Abdominal Pain Genitourinary: No: Dysuria Musculoskeletal: Positive: Edema, No: Myalgias, Arthralgias, Limited ROM, Pain Skin: No Rash Neurologic: No: Weakness Psychiatric: No: Depression Endocrine: No: Polydipsia Hematologic/Lymphatic: No: Easy Bruising Physical Exam Narrative GENERAL: Awake and alert oriented 3 no acute distress. Patient is morbidly obese. Vital signs afebrile normal and stable SKIN: Warm and dry. Color is normal no diaphoresis cyanosis or pallor HEAD: Atraumatic. Normocephalic. EYES: Pupils equal and round. No scleral icterus. No injection or drainage. ENT: No nasal bleeding or discharge. Mucous membranes pink and moist. NECK: Trachea midline. No JVD. Supple full range of motion CARDIOVASCULAR: Regular rate and rhythm. S1-S2 no murmurs rubs or gallops RESPIRATORY: No accessory muscle use. Clear to auscultation. Breath sounds equal bilaterally. GASTROINTESTINAL: Abdomen soft, non-tender, nondistended. Hepatic and splenic margins not palpable. MUSCULOSKELETAL: Extremities without clubbing, cyanosis, or edema. No obvious deformities. As noted above, patient is morbidly obese, however there is no appreciable difference in patient's right and left leg regarding swelling or edema NEUROLOGICAL: Awake and alert. No obvious cranial nerve deficits. Motor grossly within normal limits. Five out of 5 muscle strength in the arms and legs. Normal speech. PSYCHIATRIC: Appropriate mood and affect; insight and judgment normal. Data Data Last Documented VS Vital Signs Date Time Temp Pulse Resp B/P (MAP) Pulse Ox O2 Delivery O2 Flow Rate FiO2 05/13/17 03:07 98 Room Air 05/12/17 21:12 98.2 99 20 Orders Orders Complete Blood Count With Diff (05/13/17 00:49) Comprehensive Metabolic Panel (05/13/17 00:49) B-Type Natriuretic Peptide (05/13/17 00:49) D-Dimer (05/13/17 00:49) Magnesium (Mg) (05/13/17 00:49) Troponin I (05/13/17 00:49) Urinalysis - C+S If Indicated (05/13/17 00:49) Iv Access Insert/Monitor (05/13/17 00:49) Electrocardiogram (05/13/17 00:49) Ecg Monitoring (05/13/17 00:49) Oximetry (05/13/17 00:49) Oxygen Administration (05/13/17 00:49) Us Leg Venous Doppler (05/13/17 00:49) Sodium Chloride 0.9% Flush (Ns Flush) (05/13/17 01:00) Labs Laboratory Tests Test 05/13/17 01:10 White Blood Count 5.9 TH/MM3 Red Blood Count 4.78 MIL/MM3 Hemoglobin 13.7 GM/DL Hematocrit 41.6 % Mean Corpuscular Volume 87.0 FL Mean Corpuscular Hemoglobin 28.6 PG Mean Corpuscular Hemoglobin Concent 32.9 % Red Cell Distribution Width 15.1 % Platelet Count 173 TH/MM3 Mean Platelet Volume 7.4 FL Neutrophils (%) (Auto) 70.2 % Lymphocytes (%) (Auto) 20.7 % Monocytes (%) (Auto) 7.6 % Eosinophils (%) (Auto) 0.8 % Basophils (%) (Auto) 0.7 % Neutrophils # (Auto) 4.1 TH/MM3 Lymphocytes # (Auto) 1.2 TH/MM3 Monocytes # (Auto) 0.4 TH/MM3 Eosinophils # (Auto) 0.0 TH/MM3 Basophils # (Auto) 0.0 TH/MM3 CBC Comment DIFF FINAL Differential Comment D-Dimer Quantitative (PE/DVT) 0.56 MG/L FEU Blood Urea Nitrogen 15 MG/DL Creatinine 0.85 MG/DL Random Glucose 107 MG/DL Total Protein 7.1 GM/DL Albumin 3.5 GM/DL Calcium Level 8.2 MG/DL Magnesium Level 2.1 MG/DL Alkaline Phosphatase 70 U/L Aspartate Amino Transf (AST/SGOT) 33 U/L Alanine Aminotransferase (ALT/SGPT) 54 U/L Total Bilirubin 0.4 MG/DL Sodium Level 141 MEQ/L Potassium Level 3.8 MEQ/L Chloride Level 105 MEQ/L Carbon Dioxide Level 28.7 MEQ/L Anion Gap 7 MEQ/L Estimat Glomerular Filtration Rate 91 ML/MIN Troponin I LESS THAN 0.02 NG/ML B-Type Natriuretic Peptide 48 PG/ML MDM Medical Decision Making Medical Screen Exam Complete: Yes Emergency Medical Condition: Yes Medical Record Reviewed: Yes Differential Diagnosis Leg swelling, edema, peripheral edema, DVT Narrative Course 2. Ultrasound right lower extremity negative for DVT. D-dimer 0.56, not appreciably positive at the high-end of normal. Patient has history of chronic renal insufficiency with proteinuria being followed as outpatient Diagnosis Primary Impression: Peripheral edema Patient Instructions: Edema (ED), General Instructions Additional Instructions: Recommend follow-up with your doctor. Recommend repeat laboratory examinations repeat his emanation right lower extremity. If pain and symptoms persist, recommend repeat duplex Doppler ultrasound of lower extremity within 2 weeks. Return for worsening Disposition: 01 DISCHARGE HOME Condition: Stable Arsalan Hay MD May 13, 2017 03:21
--- NOTE | 2017-05-13 15:13 | EKG ---
Date Performed: 05/13/2017 Time Performed: 03:08:58 PTAGE: 61 years EKG: Sinus rhythm WITH FIRST DEGREE AV BLOCK ABNORMAL ECG PREVIOUS TRACING : 01/25/17 @ 10.37.39 Since previous tracing, no significant change noted DOCTOR: Matthew Kan Interpretating Date/Time 05/13/2017 15:12:03
== END 2017-05-13 03:24 | disposition home or self-care (01) ==
LOC: NEPE 21:10
DX: R60.0 Localized edema (principal); R94.31 Abnormal electrocardiogram [ECG] [EKG]; Z79.01 Long term (current) use of anticoagulants; Z86.711 Personal history of pulmonary embolism
CPT/HCPCS: 80053; 83735; 83880; 84484; 85025; 85379; 93005; 93971; 99285

== ENCOUNTER 2017-10-11 08:01 | Emergency (ER) | payer SELFPAY ==
[2017-10-11 08:05] VITALS: BP 180/86; PULSE 89; RESP 19; TEMP 98.2; O2SAT 97
[2017-10-11 08:10] VITALS: BP 158/74; PULSE 88; RESP 18; O2SAT 96
[2017-10-11 08:30] VITALS: O2SAT 96
[2017-10-11] MEDS ORDERED: SODIUM CHLORIDE 0.9% FLUSH 10 ML FLUSH IVF PRN (08:30)
--- NOTE | 2017-10-11 08:31 | PD ---
HPI Chief Complaint: Numbness/Tingling Time Seen by Provider: 08:14 Travel History International Travel<30 days: No Contact w/Intl Traveler<30days: No Traveled to known affect area: No History of Present Illness HPI The patient is a 61-year-old male who presents to the emergency department for left arm numbness and heaviness of 3 days duration. The patient has a history of neuropathy to the face and neck, however, noticed 3 days ago he had numbness of his left hand and left arm. The patient feels like the numbness is gone from the left hand up the left arm, states it feels heavy with mild loss of strength. 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 The patient denies any difficulty swallowing, difficulty with speech, new facial numbness, or weakness of the lower extremities her right upper extremity. The patient's symptoms started 3 days ago. The patient does have a history of hypertension, hyperlipidemia, and pulmonary embolism. The patient is currently anticoagulated with Xarelto. Symptoms are moderate. PFSH Past Medical History Hx Anticoagulant Therapy: Yes Arthritis: Yes Asthma: Yes Autoimmune Disease: No Blood Disorders: No Anxiety: Yes Depression: Yes Cancer: No Cardiac Catheterization: Yes Cardiovascular Problems: Yes High Cholesterol: No Chest Pain: No Congestive Heart Failure: No Cerebrovascular Accident: No Diabetes: No Diminished Hearing: Yes (STUFFY EARS) Deep Vein Thrombosis: Yes (hx blood clots/pe) Endocrine: No Gastrointestinal Disorders: Yes GERD: No Genitourinary: No Headaches: Yes Hepatitis: No Hiatal Hernia: No Hypertension: No Immune Disorder: No Implanted Vascular Access Dvce: No Kidney Stones: No Musculoskeletal: Yes (FREQUENT FEET CRAMPING) Neurologic: Yes ("FACIAL NEUROPATHY") Psychiatric: Yes Reproductive: No Respiratory: Yes Immunizations Current: No Migraines: No Myocardial Infarction: No Radiation Therapy: No Renal Failure: No Seizures: No Sickle Cell Disease: No Sleep Apnea: No Thyroid Disease: No Ulcer: No Past Surgical History Abdominal Surgery: Yes (HERNIA SURGERY ) AICD: No Appendectomy: No Arteriovenous Shunt: No Cardiac Surgery: No Cholecystectomy: No Ear Surgery: No Endocrine Surgery: No Eye Surgery: No Genitourinary Surgery: No Gynecologic Surgery: No Insulin Pump: No Joint Replacement: Yes (RIGHT KNEE SX X 2) Oral Surgery: Yes (ORIF RIGHT MANDIBLE) Thoracic Surgery: No Other Surgery: Yes Social History Alcohol Use: No Tobacco Use: No Substance Use: No Allergies-Medications (Allergen,Severity, Reaction): Coded Allergies: aspirin (Unverified Adverse Reaction, Severe, BLEED, 10/11/17) Sulfa (Sulfonamide Antibiotics) (Unverified Adverse Reaction, Intermediate , STS FEELS WEIRD, 10/11/17) Reported Meds & Prescriptions Reported Meds & Active Scripts Active Pravastatin 20 Mg Tab 20 Mg PO HS Reported Xarelto (Rivaroxaban) 20 Mg Tab 20 Mg PO DAILY Review of Systems Except as stated in HPI: all other systems reviewed are Neg General / Constitutional: No: Fever HENT: No: Headaches, Neck Pain Cardiovascular: No: Chest Pain or Discomfort Respiratory: No: Shortness of Breath Gastrointestinal: No: Nausea, Vomiting, Abdominal Pain Musculoskeletal: Positive: Weakness Neurologic: Positive: Paresthesia, Sensory Disturbance, No: Ataxia, Headache, Change in Mentation, Slurred Speech Physical Exam Narrative GENERAL: Awake, alert, pleasant 61-year-old male who appears his stated age and is in no acute respiratory distress. SKIN: Focused skin assessment warm/dry. HEAD: Atraumatic. Normocephalic. EYES: Pupils equal and round. Pupils are 3 mm bilateral and reactive. EOMs are intact. ENT: No nasal bleeding or discharge. Mucous membranes pink and moist. NECK: Trachea midline. No JVD. CARDIOVASCULAR: Regular rate and rhythm. No murmur appreciated. RESPIRATORY: No accessory muscle use. Clear to auscultation. Breath sounds equal bilaterally. GASTROINTESTINAL: Abdomen soft, non-tender, nondistended. MUSCULOSKELETAL: Bilateral lower extremity edema with chronic venous stasis changes. NEUROLOGICAL: Awake and alert. No obvious cranial nerve deficits. No dysarthria noted. Pupils are equal round reactive to light, EOMs are intact, patient is able to see fingers at a distance of 2 feet without difficulty wearing glasses. No drift of the upper or lower extremities. Sensation is symmetric on the arms, legs, and face. Decreased strength noted on the left when compared to the right with extension of the elbow in flexion of the elbow. However, sensation was intact radial, median, and ulnar distribution of the left hand. Finger to nose is normal. Heel to schultz is normal. PSYCHIATRIC: Appropriate mood and affect; insight and judgment normal. Data Data Last Documented VS Vital Signs Date Time Temp Pulse Resp B/P (MAP) Pulse Ox O2 Delivery O2 Flow Rate FiO2 10/11/17 11:11 90 18 152/71 (98) 96 Room Air 10/11/17 08:05 98.2 Orders Orders Electrocardiogram (10/11/17 08:23) Prothrombin Time / Inr (Pt) (10/11/17 08:23) Act Partial Throm Time (Ptt) (10/11/17 08:23) Complete Blood Count With Diff (10/11/17 08:23) Comprehensive Metabolic Panel (10/11/17 08:23) Creatine Kinase (Cpk) (10/11/17 08:23) Troponin I (10/11/17 08:23) Ct Brain W/O Iv Contrast(Rout) (10/11/17 08:23) Chest, Single Ap (10/11/17 08:23) Ecg Monitoring (10/11/17 08:23) Iv Access Insert/Monitor (10/11/17 08:23) Oximetry (10/11/17 08:23) Sodium Chloride 0.9% Flush (Ns Flush) (10/11/17 08:30) Mri Brain W/O Contrast (10/11/17 ) Labs Laboratory Tests Test 10/11/17 08:30 White Blood Count 4.5 TH/MM3 Red Blood Count 4.77 MIL/MM3 Hemoglobin 13.4 GM/DL Hematocrit 40.7 % Mean Corpuscular Volume 85.3 FL Mean Corpuscular Hemoglobin 28.1 PG Mean Corpuscular Hemoglobin Concent 32.9 % Red Cell Distribution Width 15.5 % Platelet Count 169 TH/MM3 Mean Platelet Volume 7.1 FL Neutrophils (%) (Auto) 74.5 % Lymphocytes (%) (Auto) 17.7 % Monocytes (%) (Auto) 6.9 % Eosinophils (%) (Auto) 0.6 % Basophils (%) (Auto) 0.3 % Neutrophils # (Auto) 3.3 TH/MM3 Lymphocytes # (Auto) 0.8 TH/MM3 Monocytes # (Auto) 0.3 TH/MM3 Eosinophils # (Auto) 0.0 TH/MM3 Basophils # (Auto) 0.0 TH/MM3 CBC Comment DIFF FINAL Differential Comment Prothrombin Time 10.8 SEC Prothromb Time International Ratio 1.1 RATIO Activated Partial Thromboplast Time 29.6 SEC Blood Urea Nitrogen 13 MG/DL Creatinine 0.91 MG/DL Random Glucose 125 MG/DL Total Protein 7.2 GM/DL Albumin 3.6 GM/DL Calcium Level 8.7 MG/DL Alkaline Phosphatase 64 U/L Aspartate Amino Transf (AST/SGOT) 31 U/L Alanine Aminotransferase (ALT/SGPT) 50 U/L Total Bilirubin 0.6 MG/DL Sodium Level 137 MEQ/L Potassium Level 3.8 MEQ/L Chloride Level 102 MEQ/L Carbon Dioxide Level 27.0 MEQ/L Anion Gap 8 MEQ/L Estimat Glomerular Filtration Rate 84 ML/MIN Total Creatine Kinase 270 U/L Troponin I LESS THAN 0.02 NG/ML MDM Medical Decision Making Medical Screen Exam Complete: Yes Emergency Medical Condition: Yes Medical Record Reviewed: Yes Interpretation(s) EKG reveals sinus rhythm with first-degree AV block, NH interval 248 ms. Last Impressions Head CT 10/11/1723 Signed Impressions: CONCLUSION: 1. Negative CT Head non contrast. Chest X-Ray 10/11/17822 Signed Impressions: CONCLUSION: 1. Cardiomegaly. 2. No acute focal pulmonary infiltrates or pulmonary vascular congestion. 3. Degenerative changes and scoliosis of the thoracic spine. Brain MRI 10/11/17 0000 Signed Impressions: CONCLUSION: 1. Negative for acute ischemic event. There is minimal periventricular white m atter change. 2. There is no hemorrhage. Laboratory Tests Test 10/11/17 08:30 White Blood Count 4.5 TH/MM3 Red Blood Count 4.77 MIL/MM3 Hemoglobin 13.4 GM/DL Hematocrit 40.7 % Mean Corpuscular Volume 85.3 FL Mean Corpuscular Hemoglobin 28.1 PG Mean Corpuscular Hemoglobin Concent 32.9 % Red Cell Distribution Width 15.5 % Platelet Count 169 TH/MM3 Mean Platelet Volume 7.1 FL Neutrophils (%) (Auto) 74.5 % Lymphocytes (%) (Auto) 17.7 % Monocytes (%) (Auto) 6.9 % Eosinophils (%) (Auto) 0.6 % Basophils (%) (Auto) 0.3 % Neutrophils # (Auto) 3.3 TH/MM3 Lymphocytes # (Auto) 0.8 TH/MM3 Monocytes # (Auto) 0.3 TH/MM3 Eosinophils # (Auto) 0.0 TH/MM3 Basophils # (Auto) 0.0 TH/MM3 CBC Comment DIFF FINAL Differential Comment Prothrombin Time 10.8 SEC Prothromb Time International Ratio 1.1 RATIO Activated Partial Thromboplast Time 29.6 SEC Blood Urea Nitrogen 13 MG/DL Creatinine 0.91 MG/DL Random Glucose 125 MG/DL Total Protein 7.2 GM/DL Albumin 3.6 GM/DL Calcium Level 8.7 MG/DL Alkaline Phosphatase 64 U/L Aspartate Amino Transf (AST/SGOT) 31 U/L Alanine Aminotransferase (ALT/SGPT) 50 U/L Total Bilirubin 0.6 MG/DL Sodium Level 137 MEQ/L Potassium Level 3.8 MEQ/L Chloride Level 102 MEQ/L Carbon Dioxide Level 27.0 MEQ/L Anion Gap 8 MEQ/L Estimat Glomerular Filtration Rate 84 ML/MIN Total Creatine Kinase 270 U/L Troponin I LESS THAN 0.02 NG/ML Differential Diagnosis Differential diagnosis includes TIA, CVA, acute focal neurologic deficit, intracranial hemorrhage, peripheral neuropathy, electrolyte abnormality. Narrative Course IV was established, labs are drawn and sent, the patient was placed on cardiac telemetry monitoring and continuous pulse oximetry monitoring. The patient does not meet stroke alert criteria as his symptoms started 3 days ago and would not be a candidate for TPA as he is currently on Xarelto and outside the time window. The patient has a noted history of allergies to aspirin. CT of the brain was obtained. EKG was ordered and interpreted. Electrolytes were sent to lab. Diagnosis Primary Impression: Paresthesia of left upper extremity Patient Instructions: General Instructions Additional Instructions: Continue medications as previously directed. Follow-up with neurology on an outpatient basis. Please provide the patient a copy of his CT results, MRI results, and lab results at discharge. Return if symptoms worsen or progress. Disposition: 01 DISCHARGE HOME Condition: Stable Vijay Graff MD Oct 11, 2017 08:31
[2017-10-11 08:48] LABS: AUTOMATED NEUTROPHIL # 3.3 TH/MM3 (1.8-7.7); BASOPHIL % 0.3 % (0.0-2.0); EOSINOPHIL % 0.6 % (0.0-4.0); HEMATOCRIT 40.7 % (39.0-51.0); HEMOGLOBIN 13.4 GM/DL (13.0-17.0); LYMPH % 17.7 % (9.0-44.0); LYMPHOCYTE # 0.8 TH/MM3 (1.0-4.8); MEAN CELL VOLUME 85.3 FL (80.0-100.0); MEAN CORPUSCULAR HEMOGLOBIN 28.1 PG (27.0-34.0); MEAN CORPUSCULAR HGB CONC 32.9 % (32.0-36.0); MEAN PLATELET VOLUME 7.1 FL (7.0-11.0); MONO % 6.9 % (0.0-8.0); MONOCYTE # 0.3 TH/MM3 (0-0.9); NEUT % 74.5 % (16.0-70.0); PLATELET COUNT 169 TH/MM3 (150-450); RED BLOOD COUNT 4.77 MIL/MM3 (4.50-5.90); RED CELL DISTRIBUTION WIDTH 15.5 % (11.6-17.2); WHITE BLOOD COUNT 4.5 TH/MM3 (4.0-11.0)
[2017-10-11 08:57] LABS: INTERNATIONAL NORMALIZED RATIO 1.1 RATIO; PROTHROMBIN TIME - PATIENT 10.8 SEC (9.8-11.6)
[2017-10-11 09:06] LABS: ALBUMIN 3.6 GM/DL (3.4-5.0); AST (GOT) 31 U/L (15-37); BLOOD UREA NITROGEN 13 MG/DL (7-18); CALCIUM 8.7 MG/DL (8.5-10.1); CREATININE 0.91 MG/DL (0.60-1.30); GLOMERULAR FILTRATION RATE 84 ML/MIN (>89); GLUCOSE,RANDOM 125 MG/DL (74-106)
[2017-10-11 09:08] LABS: ALT (GPT) 50 U/L (12-78); CHLORIDE 102 MEQ/L (98-107); SODIUM (NA) 137 MEQ/L (136-145); TOTAL BILIRUBIN ADULT 0.6 MG/DL (0.2-1.0); TOTAL PROTEIN 7.2 GM/DL (6.4-8.2)
[2017-10-11 09:11] LABS: ALKALINE PHOSPHATASE 64 U/L (45-117); TROPONIN I LESS THAN 0.02 NG/ML (0.02-0.05)
--- NOTE | 2017-10-11 09:19 | RADRPT ---
EXAM DATE: 10/11/2017 8:45 AM EDT AGE/SEX: 61 years / Male INDICATIONS: Left arm numbness and weakness. CLINICAL DATA: This is the patient's initial encounter. Patient reports that signs and symptoms have been present for 1 day and indicates a pain score of 0/10. MEDICAL/SURGICAL HISTORY: Cardiovascular disease. None. RADIATION DOSE: 66.35 CTDI (mGy) [place]PAR[place]: [facility] [place]25/2017. [facility] [place]AST, 01/24/2017. . TECHNIQUE: CT of the head without contrast. Using automated exposure control and adjustment of the mA and/or kV according to patient size, radiation dose was kept as low as reasonably achievable to ob tain optimal diagnostic quality images. FINDINGS: Cerebrum: The ventricles are normal for age. No evidence of midline shift, mass lesion, hemorrhage or acute infarction. No extraaxial fluid collections are seen. Posterior Fossa: The cerebellum and brainstem are intact. The 4th ventricle is midline. The cerebe llopontine angle is unremarkable. Extracranial: The visualized portion of the orbits is intact. Skull: The calvaria is intact. No evidence of skull fracture. CONCLUSION: 1. Negative CT Head non contrast. Electronically signed by: Jeff Bishop MD 10/11/2017 9:17 AM EDT
--- NOTE | 2017-10-11 09:21 | RADRPT ---
EXAM DATE: 10/11/2017 8:37 AM EDT AGE/SEX: 61 years / Male INDICATIONS: Chest discomfort, left arm pain. CLINICAL DATA: This is the patient's initial encounter. Patient reports that signs and symptoms have been present for 1 day and indicates a pain score of 0/10. MEDICAL/SURGICAL HISTORY: Hypertension. None. [place] [facility] [place]. . FINDINGS: The heart is enlarged but stable. The pulmonary vascular pattern is normal. The lungs are clear. Dege nerative changes and scoliosis of the thoracic spine are noted. CONCLUSION: 1. Cardiomegaly. 2. No acute focal pulmonary infiltrates or pulmonary vascular congestion. 3. Degenerative changes and scoliosis of the thoracic spine. Electronically signed by: Jeff Bishop MD 10/11/2017 9:19 AM EDT
[2017-10-11 11:11] VITALS: BP 152/71; PULSE 90; RESP 18; O2SAT 96
--- NOTE | 2017-10-11 11:49 | RADRPT ---
EXAM DATE: 10/11/2017 10:51 AM EDT AGE/SEX: 61 years / Male INDICATIONS: . Left hand and arm numbness. CLINICAL DATA: This is the patient's initial encounter. Patient reports that signs and symptoms have been present for 1 day and indicates a pain score of 0/10. MEDICAL/SURGICAL HISTORY: Hypertension. DVT /PE Tonsillectomy. Lt shoulder, lumbar surgery, Bi lateral knee, hernia COMPARISON: [facility] – [place], [place] BRAIN W/O CONTRAST, 01/25/2017. . TECHNIQUE: Multiplanar, multisequence examination of the brain was performed without contrast. FINDINGS: Ventricular size is appropriate. Midline structures are intact. Minimal periventricular white matter changes are evident. There are no extra-axial fluid collections appreciated. There is no restricted diffusion evident to suggest an acute ischemic event. The posterior fossa is unremarkable Orbits and perineal sinuses visualized are unremarkable. There is no parenchymal hemorrhage identified. CONCLUSION: 1. Negative for acute ischemic event. There is minimal periventricular white matter change. 2. There is no hemorrhage. Electronically signed by: Hector Segura MD 10/11/2017 11:48 AM EDT
--- NOTE | 2017-10-11 13:07 | EKG ---
Date Performed: 10/11/2017 Time Performed: 08:24:38 PTAGE: 61 years EKG: Sinus rhythm WITH FIRST DEGREE AV BLOCK ABNORMAL ECG PREVIOUS TRACING : 05/13/2017 03.08 DOCTOR: Gordon Cortes Interpretating Date/Time 10/11/2017 13:04:04
== END 2017-10-11 12:12 | disposition home or self-care (01) ==
LOC: NEPC 08:01
DX: R20.2 Paresthesia of skin (principal); G62.9 Polyneuropathy, unspecified; R94.31 Abnormal electrocardiogram [ECG] [EKG]; R53.1 Weakness; J45.909 Unspecified asthma, uncomplicated; Z88.2 Allergy status to sulfonamides; Z86.718 Personal history of other venous thrombosis and embolism; Z79.01 Long term (current) use of anticoagulants
CPT/HCPCS: 70450; 70551; 71045; 80053; 82550; 84484; 85025; 85610; 85730; 93005